=== PATIENT | female | born 1980 | race Caucasian/White ===

== ENCOUNTER 2016-08-04 00:53 | Emergency (ER) | payer BC, OTHER ==
--- NOTE | 2016-08-04 04:14 | ED NURSING NOTES ---
Clinical Report - Nurses [facility] [address] [place] [address] 08/04/2016 0:56 Patient: FAUZIA LINDSAY TRIAGE Triage time 01:05. Acuity: LEVEL 3. Chief Complaint: DEPRESSION. --01:18 Lester Varela R.N. 01:05 08/04/16. BP: 142/98. HR: 89. RR: 20. O2 saturation: 99%. Temp: 98.1 F. Pain level now 0/10. --01:18 Lester Varela R.N. Weight: 77.1 kg stated. Height/Length: 66 inches Per Patient. BMI: 27.4. --01:15 Lester Varela R.N. Medications Haldol 10mg. --01:09 Lester Varela R.N. INVanz Injection. --01:10 Lester Varela R.N. [place] Oral 1200, mg. --01:10 Lester Varela R.N. LamoTRIgine Oral (Tablet 150 mg). --01:10 Lester Varela R.N. Synthroid Oral 150 mcg. --01:11 Lester Varela R.N. Xanax Oral. --01:11 Lester Varela R.N. Medication/allergy information source: the patient. --01:18 Lester Varela R.N. Allergies NSAIDs. --01:12 Lester Varela R.N. Sulfa Antibiotics. --01:12 Lester Varela R.N. Diclofenac. Isotretinoin. Methocarbamol. morphine. PredniSONE. Tramadol. --02:36 McQuoid, Gely, ER Tech1. History Arrived by private vehicle, and accompanied by family and spouse. Primary physician called the ED prior to patient's arrival (Petra Hays). Onset: today. ( Pt was told to come in to be medically cleared. Pt has a bed at [facility]. Documents have been sent to [place] by the pts PCP, Petra Hays [phone]. The pt has been manic today. She denies any SI or HI at this time. Pt was given 10mg of haldol PO by pcp today.). She has had anxiety. ( Manic). Treatment EDUCATION ANALYST: None. PAST MEDICAL HX: Anxiety. Psychiatric illness. ( Nicotine gum). SOCIAL HX: Former smoker. History of occasional drug use: marijuana. Recently used drugs today. No alcohol use. SELF HARM ASSESSMENT: A self harm assessment was performed. The patient answered "no" to the question "Have you recently felt down, depressed, or hopeless?", "Have you noticed less interest or pleasure in doing things?", "Do you have thoughts of harming or killing yourself?", "Are you here because you tried to hurt yourself?", "Have you ever tried to hurt yourself before today?", "Have you recently had thoughts about harming or killing others?" and "Do you have any dangerous items in your possession?". --01:18 Lester Varela R.N. PROBLEMS: Schizophrenia. Asthma. Depression. Bipolar Disorder. Thyroid Disease. --01:13 Lester Varela R.N. ADDITIONAL SURGERIES: . --01:13 Lester Varela R.N. Interventions ID band on patient. To treatment room. --01:18 Lester Varela R.N. PHYSICAL ASSESSMENT GENERAL / NEURO / PSYCH: Alert. Oriented X 4. Appears in no acute distress. Speech within normal limits. Affect appears normal. Patient appears calm and cooperative. Good eye contact. Patient appears well-nourished and neat and clean. RESPIRATORY: Respirations not labored. Breath sounds within normal limits. CVS: Normal heart rate and rhythm. Capillary refill less than 2 seconds. GI / : Abdomen soft and nontender. Bowel sounds within normal limits. SKIN: Skin intact. Skin is warm and dry. Skin color is within normal limits. --01:18 Lester Varela R.N. NURSING PROGRESS NOTES Two patient identifiers checked. Call light placed in reach. Side rails up x 1. Bed placed in lowest position. Brakes of bed on. ( is at bedside and will remain for the duration of the time here.). --01:19 Lester Varela R.N. 01:10. Checked patient name and birthdate urine collected; sample sent to lab. Specimen labeled in the presence of the patient. --01:32 Gely Mar, ER Tech1 01:18. Checked patient name and birthdate: patient confirmed. Blood samples drawn by tech per protocol ; labeled in presence of the patient and sent to lab: kayden kennedy. --01:32 Gely Mar, ER Tech1 01:25 Medical records requested from [facility]. --01:34 Gely Mar, ER Tech1 ( [place] rep talked to the pt at length. at bedside. Trying to get placement at [place] for the pt.). --03:01 Lester Varela R.N. 04:13 08/04/16. BP: 131/90. HR: 98. RR: 18. O2 saturation: 99% on room air. --04:14 Gely Mar, ER Tech1 05:54 08/04/2016 Alprazolam PO 1 mg given. Allergies verified, confirmed 5 rights and sedative warning given to the patient and patient's family. --05:54 Lester Varela R.N. 05:56 08/04/2016 NICOTINE Topical 21 mg. Applied to the right upper arm. Allergies verified and confirmed 5 rights. --05:56 Lester Varela R.N. 06:02 08/04/2016 LITHIUM ([place] Citrate) PO 1200 mg given. Allergies verified and confirmed 5 rights. --06:02 Lester Varela R.N. ( is leaving. Pt is calm and cooperative, sitting in bed.). --06:04 Lester Varela R.N. 06:20 Breakfast provided to patient, patient unsure if she is hungry. --06:26 Gely Mar, ER Tech1 06:38 08/04/2016 LamoTRIgine PO Tablets 125 mg given. Allergies verified and confirmed 5 rights. --06:38 Joyce Nicole ( Pt has been informed that she is awaiting NWA. NWA will be here at 0845.). --06:40 Lester Varela R.N. 07:57 08/04/16. BP: 129/93 (regular adult cuff) taken on the left arm, while sitting. HR: 98. RR: 16 (regular). O2 saturation: 100% on room air. Temp: 97.7 F (oral). Pain level now: 5/10. Additional comments: LUGO. --07:59 Racheal Machado R.N. 07:59 08/04/16. --07:59 Racheal Machado R.N. 08:03 08/04/2016 Levothyroxin * PO 150mcg --08:03 Racheal Machado R.N. DISPOSITION / DISCHARGE Departure time: 08:04 Aug 04 2016. Condition at departure: stable. No learning barriers present. Patient verbalized understanding. The patient was discharged by the physician. She was discharged ([place]) and accompanied by EMT. She left the Emergency Department via ambulance and on a stretcher. Driving (Ambulance). --08:06 Racheal Machado R.N. Locked/Released at 08/04/2016 8:06 by Racheal Machado R.N.
--- NOTE | 2016-08-04 04:14 | ED NURSING NOTES ---
Clinical Report - Nurses [facility] [address] [place] [address] 08/04/2016 0:56 Patient: FAUZIA LINDSAY TRIAGE Triage time 01:05. Acuity: LEVEL 3. Chief Complaint: DEPRESSION. --01:18 Lester Varela R.N. 01:05 08/04/16. BP: 142/98. HR: 89. RR: 20. O2 saturation: 99%. Temp: 98.1 F. Pain level now 0/10. --01:18 Lester Varela R.N. Weight: 77.1 kg stated. Height/Length: 66 inches Per Patient. BMI: 27.4. --01:15 Lester Varela R.N. Medications Haldol 10mg. --01:09 Lester Varela R.N. INVanz Injection. --01:10 Lester Varela R.N. [place] Oral 1200, mg. --01:10 Lester Varela R.N. LamoTRIgine Oral (Tablet 150 mg). --01:10 Lester Varela R.N. Synthroid Oral 150 mcg. --01:11 Lester Varela R.N. Xanax Oral. --01:11 Lester Varela R.N. Medication/allergy information source: the patient. --01:18 Lester Varela R.N. Allergies NSAIDs. --01:12 Lester Varela R.N. Sulfa Antibiotics. --01:12 Lester Varela R.N. Diclofenac. Isotretinoin. Methocarbamol. morphine. PredniSONE. Tramadol. --02:36 McQuoid, Gely, ER Tech1. History Arrived by private vehicle, and accompanied by family and spouse. Primary physician called the ED prior to patient's arrival (Petra Hays). Onset: today. ( Pt was told to come in to be medically cleared. Pt has a bed at [facility]. Documents have been sent to [place] by the pts PCP, Petra Hays [phone]. The pt has been manic today. She denies any SI or HI at this time. Pt was given 10mg of haldol PO by pcp today.). She has had anxiety. ( Manic). Treatment DIGITAL COMMENTATOR: None. PAST MEDICAL HX: Anxiety. Psychiatric illness. ( Nicotine gum). SOCIAL HX: Former smoker. History of occasional drug use: marijuana. Recently used drugs today. No alcohol use. SELF HARM ASSESSMENT: A self harm assessment was performed. The patient answered "no" to the question "Have you recently felt down, depressed, or hopeless?", "Have you noticed less interest or pleasure in doing things?", "Do you have thoughts of harming or killing yourself?", "Are you here because you tried to hurt yourself?", "Have you ever tried to hurt yourself before today?", "Have you recently had thoughts about harming or killing others?" and "Do you have any dangerous items in your possession?". --01:18 Lester Varela R.N. PROBLEMS: Schizophrenia. Asthma. Depression. Bipolar Disorder. Thyroid Disease. --01:13 Lester Varela R.N. ADDITIONAL SURGERIES: . --01:13 Lester Varela R.N. Interventions ID band on patient. To treatment room. --01:18 Lester Varela R.N. PHYSICAL ASSESSMENT GENERAL / NEURO / PSYCH: Alert. Oriented X 4. Appears in no acute distress. Speech within normal limits. Affect appears normal. Patient appears calm and cooperative. Good eye contact. Patient appears well-nourished and neat and clean. RESPIRATORY: Respirations not labored. Breath sounds within normal limits. CVS: Normal heart rate and rhythm. Capillary refill less than 2 seconds. GI / : Abdomen soft and nontender. Bowel sounds within normal limits. SKIN: Skin intact. Skin is warm and dry. Skin color is within normal limits. --01:18 Lester Varela R.N. NURSING PROGRESS NOTES Two patient identifiers checked. Call light placed in reach. Side rails up x 1. Bed placed in lowest position. Brakes of bed on. ( is at bedside and will remain for the duration of the time here.). --01:19 Lester Varela R.N. 01:10. Checked patient name and birthdate urine collected; sample sent to lab. Specimen labeled in the presence of the patient. --01:32 Gely Mar, ER Tech1 01:18. Checked patient name and birthdate: patient confirmed. Blood samples drawn by tech per protocol ; labeled in presence of the patient and sent to lab: kayden kennedy. --01:32 Gely Mar, ER Tech1 01:25 Medical records requested from [facility]. --01:34 Gely Mar, ER Tech1 ( [place] rep talked to the pt at length. at bedside. Trying to get placement at [place] for the pt.). --03:01 Lester Varela R.N. 04:13 08/04/16. BP: 131/90. HR: 98. RR: 18. O2 saturation: 99% on room air. --04:14 Gely Mar, ER Tech1 05:54 08/04/2016 Alprazolam PO 1 mg given. Allergies verified, confirmed 5 rights and sedative warning given to the patient and patient's family. --05:54 Lester Varela R.N. 05:56 08/04/2016 NICOTINE Topical 21 mg. Applied to the right upper arm. Allergies verified and confirmed 5 rights. --05:56 Lester Varela R.N. 06:02 08/04/2016 LITHIUM ([place] Citrate) PO 1200 mg given. Allergies verified and confirmed 5 rights. --06:02 Lester Varela R.N. ( is leaving. Pt is calm and cooperative, sitting in bed.). --06:04 Lester Varela R.N. 06:20 Breakfast provided to patient, patient unsure if she is hungry. --06:26 Gely Mar, ER Tech1 06:38 08/04/2016 LamoTRIgine PO Tablets 125 mg given. Allergies verified and confirmed 5 rights. --06:38 Joyce Nicole ( Pt has been informed that she is awaiting NWA. NWA will be here at 0845.). --06:40 Lester Varela R.N. 07:57 08/04/16. BP: 129/93 (regular adult cuff) taken on the left arm, while sitting. HR: 98. RR: 16 (regular). O2 saturation: 100% on room air. Temp: 97.7 F (oral). Pain level now: 5/10. Additional comments: ULGO. --07:59 Racheal Machado R.N. 07:59 08/04/16. --07:59 Racheal Machado R.N. 08:03 08/04/2016 Levothyroxin * PO 150mcg --08:03 Racheal Machado R.N. DISPOSITION / DISCHARGE Departure time: 08:04 Aug 04 2016. Condition at departure: stable. No learning barriers present. Patient verbalized understanding. The patient was discharged by the physician. She was discharged ([place]) and accompanied by EMT. She left the Emergency Department via ambulance and on a stretcher. Driving (Ambulance). --08:06 Racheal Machado R.N. Locked/Released at 08/04/2016 8:06 by Racheal Machado R.N.
--- NOTE | 2016-08-04 04:14 | ED ORDER SUMMARY ---
..... Patient: FAUZIA LINDSAY OrderSheet [facility] VisitID: [id number] [place] [address] 36y, F Registration Date/Time: 08/04/2016 ORDER SHEET Weight: 77.1 kg (stated) Allergies: NSAIDs, Sulfa Antibiotics, Diclofenac, Isotretinoin, Methocarbamol, morphine, PredniSONE, Tramadol GENERAL ORDERS: CBC w Diff Urgent (01:08/04/2016 Brooke Holman) (Ack 1:15 ALawrence ER Tech1) (1:16 ALawrence ER Tech1) CMP Urgent (:08/04/2016 Brooke Holman) (Ack 1:15 ALawrence ER Tech1) (1:16 ALawrence ER Tech1) UA-Culture if indicated Urgent (:08/04/2016 Brooke Holman) (Ack 1:15 ALawrence ER Tech1) (1:18 AMcQuoid ER Tech1) PT with INR Urgent (:08/04/2016 Brooke Holman) (Ack 1:15 ALawrence ER Tech1) (1:16 ALawrence ER Tech1) Urine Urgent (:08/04/2016 Brooke Holman) (Ack 1:15 ALawrence ER Tech1) (1:18 AMcQuoid ER Tech1) Urine Drug Screen Urgent (:08/04/2016 Brooke Holman) (Ack 1:15 ALawrence ER Tech1) (1:18 AMcQuoid ER Tech1) Salicylate Level Urgent (:08/04/2016 Brooke Holman) (Ack 1:15 ALawrence ER Tech1) (1:16 ALawrence ER Tech1) Acetaminophen Level Urgent (:08/04/2016 Brooke Holman) (Ack 1:15 ALawrence ER Tech1) (1:16 ALawrence ER Tech1) Ethyl Alcohol Urgent (:08/04/2016 Brooke Holman) (Ack 1:15 ALawrence ER Tech1) (1:16 ALawrence ER Tech1) TSH Urgent (01:08/04/2016 AMcQuoid ER Tech1 verbal order read back to Brooke Holman) (1:41 AMcQuoid ER Tech1) (1:42 ALawrence ER Tech1) [place] Level Urgent (02:31 08/04/2016 AMcQuoid ER Tech1 verbal order read back to Brooke Holman) (2:31 AMcQuoid ER Tech1) MEDICATION ORDERS: Alprazolam PO 1 mg (once now) (05:45 08/04/2016 Brooke Holman) (5:54 TLewis R.N.) Nicotine Topical 21 mg (NOW) (05:46 08/04/2016 Brooke Holman) (5:56 TLewis R.N.) - (synthroid 150 mcg PO once before breakfast) (05:50 08/04/2016 Brooke Holman) (Ack 6:07 TLewis R.N.) (8:03 RUBAanders R.N.) [place] PO 1200 mg (PO once now) (05:50 08/04/2016 Brooke Holman) (6:02 TLewis R.N.) - (lamotrigine 125 mg PO once now) (06:12 08/04/2016 Brooke Holman) (Ack 6:22 HSoule) (6:38 HSoule) IV FLUIDS: ORDER SHEET NOTES: [Electronically signed by Racheal Machado R.N. (08:06 08/04/2016)] [Electronically signed by Jimbo Greco Dr. (14:00 08/06/2016)] [Electronically locked/signed by Racheal Machado R.N. (08:06 08/04/2016)]
--- NOTE | 2016-08-04 04:14 | ED ORDER SUMMARY ---
..... Patient: FAUZIA LINDSAY OrderSheet [facility] VisitID: [id number] [place] [address] 36y, F Registration Date/Time: 08/04/2016 ORDER SHEET Weight: 77.1 kg (stated) Allergies: NSAIDs, Sulfa Antibiotics, Diclofenac, Isotretinoin, Methocarbamol, morphine, PredniSONE, Tramadol GENERAL ORDERS: CBC w Diff Urgent (01:08/04/2016 Brooke Holman) (Ack 1:15 ALawrence ER Tech1) (1:16 ALawrence ER Tech1) CMP Urgent (:08/04/2016 Brooke Holman) (Ack 1:15 ALawrence ER Tech1) (1:16 ALawrence ER Tech1) UA-Culture if indicated Urgent (:08/04/2016 Brooke Holman) (Ack 1:15 ALawrence ER Tech1) (1:18 AMcQuoid ER Tech1) PT with INR Urgent (:08/04/2016 Brooke Holman) (Ack 1:15 ALawrence ER Tech1) (1:16 ALawrence ER Tech1) Urine Urgent (:08/04/2016 Brooke Holman) (Ack 1:15 ALawrence ER Tech1) (1:18 AMcQuoid ER Tech1) Urine Drug Screen Urgent (:08/04/2016 Brooke Holman) (Ack 1:15 ALawrence ER Tech1) (1:18 AMcQuoid ER Tech1) Salicylate Level Urgent (:08/04/2016 Brooke Holman) (Ack 1:15 ALawrence ER Tech1) (1:16 ALawrence ER Tech1) Acetaminophen Level Urgent (:08/04/2016 Brooke Holman) (Ack 1:15 ALawrence ER Tech1) (1:16 ALawrence ER Tech1) Ethyl Alcohol Urgent (:08/04/2016 Brooke Holman) (Ack 1:15 ALawrence ER Tech1) (1:16 ALawrence ER Tech1) TSH Urgent (01:08/04/2016 AMcQuoid ER Tech1 verbal order read back to Brooke Holman) (1:41 AMcQuoid ER Tech1) (1:42 ALawrence ER Tech1) [place] Level Urgent (02:31 08/04/2016 AMcQuoid ER Tech1 verbal order read back to Brooke Holman) (2:31 AMcQuoid ER Tech1) MEDICATION ORDERS: Alprazolam PO 1 mg (once now) (05:45 08/04/2016 Brooke Holman) (5:54 TLewis R.N.) Nicotine Topical 21 mg (NOW) (05:46 08/04/2016 Brooke Holman) (5:56 TLewis R.N.) - (synthroid 150 mcg PO once before breakfast) (05:50 08/04/2016 Brooke Holman) (Ack 6:07 TLewis R.N.) (8:03 RUBAanders R.N.) [place] PO 1200 mg (PO once now) (05:50 08/04/2016 Brooke Holman) (6:02 TLewis R.N.) - (lamotrigine 125 mg PO once now) (06:12 08/04/2016 Brooke Holman) (Ack 6:22 HSoule) (6:38 HSoule) IV FLUIDS: ORDER SHEET NOTES: [Electronically signed by Racheal Machado R.N. (08:06 08/04/2016)] [Electronically signed by Jimbo Greco Dr. (14:00 08/06/2016)] [Electronically locked/signed by Racheal Machado R.N. (08:06 08/04/2016)]
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
--- NOTE | 2016-08-06 14:00 | ED DISCHARGE INSTRUCTIONS ---
Patient: FAUZIA LINDSAY General Instructions [facility] VisitID: [id number] [address] [place] [address] 36y, F Registration Date/Time: 08/04/2016 acute psychosis manic episode, bipolar disorder. (Electronically signed by Jimbo Greco Dr. 08/06/2016 14:00)
--- NOTE | 2016-08-06 14:00 | ED DISCHARGE INSTRUCTIONS ---
Patient: FAUZIA LINDSAY General Instructions [facility] VisitID: [id number] [address] [place] [address] 36y, F Registration Date/Time: 08/04/2016 acute psychosis manic episode, bipolar disorder. (Electronically signed by Jimbo Greco Dr. 08/06/2016 14:00)
--- NOTE | 2016-08-06 14:00 | ED MAR SUMMARY ---
..... Medication Administration Record [facility] [address] [place] [address] Patient: FAUZIA LINDSAY Visit ID: [id number] 36y, F Weight: 77.1 kg Height/Length: 66 in BMI: 27.4 ALLERGIES: Sulfa Antibiotics, NSAIDs, Isotretinoin, Diclofenac, Methocarbamol, morphine, PredniSONE, Tramadol Given 05:54 08/04/2016 Lester Varela R.N. Medication Administered: ALPRAZOLAM [PO], Dose: 1 mg PO. Medication Ordered: Alprazolam PO 1 mg (once now). Given 05:56 08/04/2016 Lester Varela R.N. Medication Administered: NICOTINE [TOPICAL], Dose: 21 mg Topical. Medication Ordered: Nicotine Topical 21 mg (NOW). Given 06:02 08/04/2016 Lester Varela R.N. Medication Administered: LITHIUM [PO] (LITHIUM CITRATE), Dose: 1200 mg PO. Medication Ordered: [place] PO 1200 mg (PO once now). Given 06:38 08/04/2016 Joyce Nicole, Medication Administered: LAMOTRIGINE [PO], Dose: 125 mg Tablets PO. Medication Ordered: - (lamotrigine 125 mg PO once now). Given 08:03 08/04/2016 Racheal Machado R.N. Medication Administered: Levothyroxin *, Dose: 150mcg * PO. Medication Ordered: - (synthroid 150 mcg PO once before breakfast).
--- NOTE | 2016-08-06 14:00 | ED MAR SUMMARY ---
..... Medication Administration Record [facility] [address] [place] [address] Patient: FAUZIA LINDSAY Visit ID: [id number] 36y, F Weight: 77.1 kg Height/Length: 66 in BMI: 27.4 ALLERGIES: Sulfa Antibiotics, NSAIDs, Isotretinoin, Diclofenac, Methocarbamol, morphine, PredniSONE, Tramadol Given 05:54 08/04/2016 Lester Varela R.N. Medication Administered: ALPRAZOLAM [PO], Dose: 1 mg PO. Medication Ordered: Alprazolam PO 1 mg (once now). Given 05:56 08/04/2016 Lester Varela R.N. Medication Administered: NICOTINE [TOPICAL], Dose: 21 mg Topical. Medication Ordered: Nicotine Topical 21 mg (NOW). Given 06:02 08/04/2016 Lester Varela R.N. Medication Administered: LITHIUM [PO] (LITHIUM CITRATE), Dose: 1200 mg PO. Medication Ordered: [place] PO 1200 mg (PO once now). Given 06:38 08/04/2016 Joyce Nicole, Medication Administered: LAMOTRIGINE [PO], Dose: 125 mg Tablets PO. Medication Ordered: - (lamotrigine 125 mg PO once now). Given 08:03 08/04/2016 Racheal Machado R.N. Medication Administered: Levothyroxin *, Dose: 150mcg * PO. Medication Ordered: - (synthroid 150 mcg PO once before breakfast).
--- NOTE | 2016-08-06 14:00 | ED MED RECONCILIATION SUMMARY ---
Patient: FAUZIA LINDSAY Medication Reconciliation Report [facility] VisitID: [id number] [address] [place] [address] 36y, F Registration Date/Time: 08/04/2016 Weight: 77.1 kg Height/Length: 66 in. BMI: 27.4 ALLERGIES: Diclofenac, Isotretinoin, Methocarbamol, morphine, NSAIDs, PredniSONE, Sulfa Antibiotics, Tramadol The patient's Home Medications are listed below: THE FOLLOWING MEDICATIONS NEED TO BE RECONCILED: Haldol 10mg INVanz Injection LamoTRIgine Oral (150 mg) [place] Oral 1200, mg Synthroid Oral 150 mcg Xanax Oral The source(s) of the original Home Medication information: patient The following Medications were given to the patient in the Emergency Department: Alprazolam [PO] PO 1 mg, administered: 08/04/2016 5:54:00 AM NICOTINE [TOPICAL] Topical 21 mg, administered: 08/04/2016 5:56:00 AM LITHIUM [PO] PO 1200 mg, administered: 08/04/2016 6:02:00 AM LamoTRIgine [PO] PO 125 mg, administered: 08/04/2016 6:38:00 AM Levothyroxin PO 150mcg, administered: 08/04/2016 8:03:00 AM The following Medications were prescribed to the patient: None.
--- NOTE | 2016-08-06 14:00 | ED MED RECONCILIATION SUMMARY ---
Patient: FAUZIA LINDSAY Medication Reconciliation Report [facility] VisitID: [id number] [address] [place] [address] 36y, F Registration Date/Time: 08/04/2016 Weight: 77.1 kg Height/Length: 66 in. BMI: 27.4 ALLERGIES: Diclofenac, Isotretinoin, Methocarbamol, morphine, NSAIDs, PredniSONE, Sulfa Antibiotics, Tramadol The patient's Home Medications are listed below: THE FOLLOWING MEDICATIONS NEED TO BE RECONCILED: Haldol 10mg INVanz Injection LamoTRIgine Oral (150 mg) [place] Oral 1200, mg Synthroid Oral 150 mcg Xanax Oral The source(s) of the original Home Medication information: patient The following Medications were given to the patient in the Emergency Department: Alprazolam [PO] PO 1 mg, administered: 08/04/2016 5:54:00 AM NICOTINE [TOPICAL] Topical 21 mg, administered: 08/04/2016 5:56:00 AM LITHIUM [PO] PO 1200 mg, administered: 08/04/2016 6:02:00 AM LamoTRIgine [PO] PO 125 mg, administered: 08/04/2016 6:38:00 AM Levothyroxin PO 150mcg, administered: 08/04/2016 8:03:00 AM The following Medications were prescribed to the patient: None.
== END 2016-08-04 08:02 | disposition short-term general hospital (02) ==
LOC: ED SRH 00:53
DX: F31.2 Bipolar disorder, current episode manic severe with psychotic features (principal); Z87.891 Personal history of nicotine dependence; J45.909 Unspecified asthma, uncomplicated; Z79.899 Other long term (current) drug therapy; Z88.2 Allergy status to sulfonamides; Z88.8 Allergy status to other drugs, medicaments and biological substances; Z88.5 Allergy status to narcotic agent
CPT/HCPCS: 90004; 90100; 91589; 92010; 92760; 92761; 92762; 92763; 92764; 92765; 92766; 92767; 92780; 93070; 93140; 94060; 95059; 97000